=== PATIENT | male | born 1970 | race Hispanic/Latino ===

== ENCOUNTER 2017-11-09 22:23 | Emergency (ER) | payer OTHER, SELFPAY ==
[2017-11-09 22:30] VITALS: BP 158/88; PULSE 116; RESP 20; TEMP 36.1; O2SAT 100; BMI 31.4
--- NOTE | 2017-11-09 22:32 | ED.SOB ---
HPI - SOB/Dyspnea General Chief Complaint: Shortness of Breath/Dyspnea Stated Complaint: SOB Time Seen by Provider: 11/09/17 22:32 Source: patient and family Mode of arrival: ambulatory Limitations: no limitations History of Present Illness Patient presents to the emergency department today with a chief complaint of feeling anxious and restless and a bit agitated. He complains of some shortness of breath and difficulty sleeping with a resting tremor. He admittedly drinks between 4-8 beers daily and quit cold turkey a few days ago. He has been through withdrawals in the past but never seizures. He has never been to rehab. He has never been on any kind of benzo taper MD Complaint: shortness of breath and anxiety Onset (ago): hour(s) Context: other Severity: mild Consistency/Duration: constant Relieving factors: nothing Exacerbating factors: nothing Related Data Home Medications Medication Instructions Recorded Confirmed ibuprofen 200 mg PO PRN PRN #0 01/24/16 Previous Rx's Medication Instructions Recorded lisinopril 10 mg PO HS #30 tab 03/05/17 lorazepam 1 tab PO BIDP PRN #15 tab 03/05/17 chlordiazepoxide HCl See Label Instructions .ROUTE 11/09/17 .COMPLEX #32 cap Allergies Allergy/AdvReac Type Severity Reaction Status Date / Time No Known Drug Allergies Allergy Verified 11/09/17 22:30 Review of Systems Review of Systems All systems reviewed & are unremarkable except as noted in HPI and below Constitutional Denies chills, Denies fever(s), Denies lethargy and Denies weakness Eyes Denies change in vision, Denies eye discharge, Denies irritation and Denies loss of vision ENT Ears, Nose, Mouth, and Throat: Denies change in voice, Denies neck pain and Denies sore throat Cardiovascular Denies chest pain, Denies irregular heart rhythm, Denies lightheadedness, Reports palpitations, Reports dyspnea, Denies dyspnea on exertion and Denies orthopnea Respiratory Denies cough, Reports dyspnea, Denies dyspnea on exertion and Denies wheezing Gastrointestinal Gastrointestinal: Denies abdominal pain, Denies change in bowel habits, Denies diarrhea, Reports nausea and Denies vomiting Genitourinary Denies hematuria, Denies flank pain, Denies urinary incontinence and Denies urinary urgency Musculoskeletal Denies neck pain Integumentary/Breasts Denies pruritus, Denies erythema, Denies rash and Denies wounds Neurologic Denies confusion, Denies loss of vision, Reports tremor(s) and Denies weakness Psychiatric Reports anxiety, Denies confusion, Denies depression, Denies homicidal ideation and Denies suicidal ideation Endocrine Reports palpitations Hematologic/Lymphatic Denies easy bruising Allergic/Immunologic Denies wheezing PFSH Social History alcohol intake: current Exam Initial Vital Signs Initial Vital Signs: Vital Signs Temperature 96.9 F L 11/09/17 22:30 Pulse Rate 116 H 11/09/17 22:30 Respiratory Rate 20 11/09/17 22:30 Blood Pressure 158/88 H 11/09/17 22:30 Pulse Oximetry 100 11/09/17 22:30 Const General: cooperative and well developed Nutritional Appearance: well nourished Orientation: alert, awake, oriented x3 and not confused HENAL Head: normocephalic and atraumatic Ears: external ears normal and TM's normal bilaterally Nose: external nose normal and No nasal discharge Face and sinus: sinuses nontender, face symmetric, no sinus tenderness and No dry mucous membranes Mouth: oral mucosae normal and moist mucous membranes Teeth and gingiva: dentition normal Throat: tonsils normal and uvula midline Eyes General: appearance normal, both eyes and all related structures Eyelids: eyelids normal Conjunctivae: conjunctivae normal Sclera: sclerae normal Pupils: PERRL EOM: EOM intact bilaterally Neck Neck: normal visual inspection, trachea midline, No lymphadenopathy, No midline deformity and No JVD Lymphatic: No lymphedema Chest Chest: normal inspection of the chest Resp Effort & Inspection: normal respiratory effort, able to speak in complete sentences, no respiratory distress and no use of accessory muscles Auscultation: clear to auscultation bilaterally, no rales, no rhonchi and no wheezes Cardio Rate: regular rate Rhythm: regular rhythm Heart Sounds: no click, no gallops, no murmurs and no rubs Pulses: normal peripheral pulses GI Inspection: non-distended Palpation: soft, no hepatosplenomegaly, No guarding, No pulsatile mass and No tender Auscultation: normal bowel sounds Back/Spine/Pelvis Back: No CVA tenderness Cervical Spine: cervical ROM normal and No pain with cervical ROM Thoracic/Lumbar Spine: thoracic and lumbar spine normal to inspection Skin General: no rashes or lesions noted, No jaundice and No petechiae Neuro General: alert, oriented x3, gait normal and no focal motor deficits Speech: speech normal Motor: tremor Sensory Exam: no sensory deficits noted Extrem General: full ROM, no clubbing, cyanosis or edema, no pedal edema and no calf tenderness Psych Appearance: well kempt Mental Status: mental status grossly normal Attitude: cooperative Thought Content: normal and suicidality Judgment: judgment good Course Orders Ordered: ED Orders 11/09/17 22:55 Acetaminophen Stat Complete Blood Count AUTO DIFF Stat Comprehensive Metabolic Panel Stat Ethanol (ETOH) Stat Hepatic (Liver) Panel Stat Lactate (Lactic Acid) Stat Salicylate Stat Discontinued Medications Sodium Chloride (Normal Saline 0.9%) 1,000 mls @ 150 mls/hr IV CONT ALEJO Last Infusion: 11/09/17 23:53 Dose: 0 mls/hr Admin: 11/09/17 23:33 Dose: 150 mls/hr Lorazepam (Ativan) 1 mg PO NOW ONE Stop: 11/09/17 23:43 Last Admin: 11/09/17 23:53 Dose: 1 mg Reevaluation(s) Reevaluation #1: [place] for Alcohol Withdrawal from [employer] on 11/09/2017 All calculations should be rechecked by clinician prior to use RESULT SUMMARY: 4 points Patients with scores ?8 typically do not require medication for withdrawal. INPUTS: Nausea/vomiting ?> 1 = Mild nausea and no vomiting Tremor ?> 1 = Not visible, but can be felt fingertip to fingertip Paroxysmal sweats ?> 1 = Barely perceptible sweating, palms moist Anxiety ?> 1 = Mildly anxious Agitation ?> 0 = Normal activity Tactile disturbances ?> 0 = None Auditory disturbances ?> 0 = Not present Visual disturbances ?> 0 = Not present Headache/fullness in head ?> 0 = Not Present Orientation/clouding of sensorium ?> 0 = Oriented, can do serial additions Vital Signs - 8 hr 11/09/17 22:30 11/09/17 23:59 Temperature 96.9 F L Pulse Rate 116 H 93 H Respiratory Rate 20 16 Blood Pressure 158/88 H 134/71 H Pulse Oximetry 100 97 MDM - SOB/Dyspnea Lab Data Result diagrams: 11/09/17 22:55 11/09/17 22:55 Lab Results 11/09/17 11/09/17 11/09/17 Range/Units 22:55 22:55 22:55 WBC 8.5 (4.5-11.0) X10^3/uL RBC 5.26 (4.5-5.9) X10^6/uL Hgb 15.9 (13.5-17.5) g/dL Hct 48.0 (41-53) % MCV 91.3 (80-100) fL MCH 30.2 (26-34) PG MCHC 33.1 (30-36) % RDW 14.8 (11.6-14.8) % Plt Count 182 (150-400) X10^3/uL Neut % (Auto) 59.2 (50-75) % Lymph % (Auto) 24.9 L (25-40) % [place] % (Auto) 13.7 (3-14) % Eos % (Auto) 1.6 L (2-4) % Baso % (Auto) 0.6 (0-2) % Neut # (Auto) 5000 (7682-0567) /uL Sodium 135 L (137-145) mmol/L Potassium 4.2 (3.4-5.1) mmol/L Chloride 105 (98-107) mmol/L Carbon Dioxide 18 L (22-32) mmol/L BUN 24 H (9-20) mg/dL Creatinine 1.10 (0.66-1.25) mg/dL Estimated GFR > 60.0 (>60) mL/min BUN/Creatinine Ratio 21.8 (6-22) Glucose 110 H (70-100) mg/dL Lactate 1.2 (0.7-2.1) mmol/L Calcium 8.8 (8.4-10.2) mg/dL Total Bilirubin 1.6 H (0.2-1.3) mg/dL Conjugated Bilirubin 0.0 (0.0-0.3) md/dL Unconjugated Bilirubin 1.3 H (0.0-1.1) mg/dL AST 34 (17-59) IU/L ALT 41 (21-72) IU/L Alkaline Phosphatase 56 (38-126) U/L Total Protein 6.9 (6.3-8.2) g/dL Albumin 3.9 (3.5-5.0) g/dL Globulin 3.0 (1.7-4.1) g/dL Albumin/Globulin Ratio 1.3 (1.0-2.8) Salicylates < 1.0 (<20) mg/dL Acetaminophen < 10 L (10-30) ug/mL Ethyl Alcohol < 10 mg/dL Discharge Plan Departure Patient Disposition: Home, Self-Care Clinical Impression: Alcohol withdrawal Discharge Date/Time: 11/10/17 00:01 Interventions: ED Discharge Assessment Last Done: 11/09/17 23:59 Instructions: DI for Drug or Alcohol Withdrawal Activity Restrictions/Additional Instructions: *You have been diagnosed with [ alcohol withdrawal ] *What to do: *Take medications as directed *Follow up with your primary care provider in 2-3 days *Return to ER if you should have any new, worsening or concerning symptoms Prescriptions: New chlordiazepoxide HCl 25 mg capsule See Label Instructions .ROUTE .COMPLEX Qty: 32 RF: 0 No Action ibuprofen 200 MG tablet 200 mg PO PRN PRNQty: 0 RF: 0 lisinopril 10 MG tablet 10 mg PO HS Qty: 30 RF: 2 lorazepam 1 MG tablet 1 tab PO BIDP PRNQty: 15 RF: 2 Referrals: [facility] [Outside] [facility] [Outside] [facility] [Outside]
[2017-11-09 23:03] LABS: Add Manual Diff / Slide Review NO; Basophils Percent Auto 0.6 % (0-2); Eosinophils Percent Auto 1.6 % (2-4); Hemoglobin 15.9 g/dL (13.5-17.5); Lymphocytes Percent Auto 24.9 % (25-40); Mean Corpuscular HGB Conc 33.1 % (30-36); Mean Corpuscular Hemoglobin 30.2 PG (26-34); Mean Corpuscular Volume 91.3 fL (80-100); Monocytes Percent Auto 13.7 % (3-14); Neutrophils Absolute Auto 5000 /uL (3000-5900); Neutrophils Percent Auto 59.2 % (50-75); Platelet Count 182 X10^3/uL (150-400); Red Blood Cell Count 5.26 X10^6/uL (4.5-5.9); Red Cell Distribution Width 14.8 % (11.6-14.8); White Blood Cell Count 8.5 X10^3/uL (4.5-11.0)
[2017-11-09 23:14] LABS: Acetaminophen < 10 ug/mL (10-30); Alanine Aminotransferase 41 IU/L (21-72); Albumin 3.9 g/dL (3.5-5.0); Albumin Globulin Ratio 1.3 (1.0-2.8); Alkaline Phosphatase 56 U/L (38-126); Aspartate Aminotransferase 34 IU/L (17-59); BUN Creatinine Ratio 21.8 (6-22); Bilirubin Total 1.6 mg/dL (0.2-1.3); Bilirubin Unconjugated 1.3 mg/dL (0.0-1.1); Blood Urea Nitrogen 24 mg/dL (9-20); Calcium 8.8 mg/dL (8.4-10.2); Carbon Dioxide 18 mmol/L (22-32); Chloride 105 mmol/L (98-107); Estimated Glomerular Filt Rate > 60.0 mL/min (>60); Ethanol (ETOH) < 10 mg/dL; Glucose 110 mg/dL (70-100); HEMOLYSIS < 15 (0-50); Lactate (Lactic Acid) 1.2 mmol/L (0.7-2.1); Potassium 4.2 mmol/L (3.4-5.1); Sodium 135 mmol/L (137-145); Total Protein 6.9 g/dL (6.3-8.2)
[2017-11-09 23:16] LABS: Salicylate < 1.0 mg/dL (<20)
[2017-11-09] MEDS: SODIUM CHLORIDE 0.9% 1,000 ML 150 ML IV (23:33)
[2017-11-09] MEDS: LORazepam 1 MG TABLET PO (23:53)
[2017-11-09 23:59] VITALS: BP 134/71; PULSE 93; RESP 16; O2SAT 97
== END 2017-11-10 00:01 | disposition home or self-care (01) ==
PROVIDERS: Emergency Provider Emergency Medicine
DX: F10.239 Alcohol dependence with withdrawal, unspecified (principal)
CPT/HCPCS: 36591; 80053; 80076; 80320; 80329; 83605; 85025; 93005; 99283; 99284; G0480

== ENCOUNTER → 2017-11-25 08:20 | Outpatient (CLI) | payer OTHER, SELFPAY ==
--- NOTE | 2017-11-25 | DI.ECHO.S_ITS ---
[facility] +---------+ : : [address] : : : : [phone] : : : : Phone: [phone]+ Echocardiogram Report + + :Name: LAURY BOSCH Study Date: 11/25/2017 Height: 71 in : :[facility] Weight: 239 lb : : Gender: Male BSA: 2.3 m2 : :: 1970 Age: 47 yrs BP: 140/60 mmHg: :Reason For Study: SOB : :Ordering Physician: Nichole Zaman : :Candy Performed By: Giselle Kovacs : :Referring: MICHELINE PATEL : + + Interpretation Summary The left ventricle is markedly dilated. Left ventricular systolic function is severely reduced. The ejection fraction is estimated to be 25-30%. There is severe global hypokinesis of the left ventricle. Assessment of diastolic parameters suggests a pseudonormalization pattern, consistent with elevated filling pressures. Cannot exclude apical mural thrombus. Repeat focus study with Definity contrast to rule out thrombus. The right ventricle is borderline dilated. Right ventricular systolic function is mildly reduced. The right ventricular systolic pressure is estimated at 35- 40 mmHg assuming a right atrial pressure of 3 mm Hg. The left atrium is severely dilated. The right atrium is severely dilated. There is severe aortic regurgitation. There is prominent holodiastolic flow reversal in the descending thoracic aorta. There is no other significant valvular heart disease. The aortic root is severely dilated. The ascending aorta is mild-moderately enlarged. Procedure: A two-dimensional transthoracic echocardiogram with color flow and Doppler was performed. The study quality was technically good. There is no prior echocardiogram noted for this patient. The patient was in normal sinus rhythm during the exam. Left Ventricle: The left ventricle is markedly dilated. Left ventricular wall thickness is mildly increased. Left ventricular systolic function is severely reduced. The ejection fraction is estimated to be 25-30%. There is severe global hypokinesis of the left ventricle. Assessment of diastolic parameters suggests a pseudonormalization pattern, consistent with elevated filling pressures. Right Ventricle: The right ventricle is borderline dilated. Right ventricular systolic function is mildly reduced. Atria: The left atrium is severely dilated. The right atrium is severely dilated. The interatrial septum is intact with no evidence for an atrial septal defect. Mitral Valve: The mitral valve is normal in structure and function. There is no mitral regurgitation noted. Aortic Valve: The aortic valve is trileaflet. The aortic valve opens well. There is severe aortic regurgitation. There is prominent holodiastolic flow reversal in the descending thoracic aorta. There is significant holodiastolic flow reversal in the proximal abdominal aorta. Tricuspid Valve: The tricuspid valve leaflets are thin and pliable. There is mild tricuspid regurgitation. The right ventricular systolic pressure is estimated at 35-40 mmHg assuming a right atrial pressure of 3 mm Hg. Pulmonic Valve: The pulmonic valve is normal in structure and function. There is trace pulmonic regurgitation. There is no other significant valvular heart disease. Great Vessels: The aortic root is severely dilated. The ascending aorta is mild-moderately enlarged. The aortic arch is at the upper limits of normal in size. The IVC is of normal diameter and collapses greater than 50% with a sniff. This suggests a low right atrial pressure of 3 mm Hg. Pericardium/ Pleura There is no pericardial effusion. There is no pleural effusion. MMode/2D Measurements & Calculations LVIDd: 7.6 cm Ao root diam: 5.0 cm LVIDs: 6.7 cm Aortic Jxn: 4.4 cm FS: 12.1 % asc Aorta Diam: 4.0 cm EPSS: 3.8 cm Ao Arch Diam (Prox Trans): 3.1 cm IVSd: 1.2 cm LVPWd: 1.1 cm LV alvarado. diameter/BSA (cm/m^2): 3.3 LV sys. diameter/BSA (cm/m^2): 2.9 LA dimension: 4.8 cm RA long axis: 6.6 cm LA A2 area: 32.0 cm2 RA area: 33.4 cm2 LA A4 area: 34.2 cm2 RA vol: 143.9 ml LA length (vol): 7.0 cm RA : 63.2 ml/m2 LA vol: 132.0 ml IVC diam: 1.9 cm LA vol index: 58.0 ml/m2 RVDd major: 6.6 cm RVD1 (basal): 4.5 cm RVD2 (mid): 4.4 cm Doppler Measurements & Calculations Ao V2 max: 142.0 cm/sec AI P1/2t: 206.5 msec Ao V2 mean: 110.2 cm/sec AI dec slope: 528.4 cm/sec2 Ao max P.1 mmHg Ao mean P.3 mmHg Ao V2 VTI: 30.6 cm MV E max servando: 67.9 cm/sec TR max servando: 339.1 cm/sec MV A max servando: 21.7 cm/sec TR max P.0 mmHg MV E/A: 3.1 PA V2 max: 41.0 cm/sec Med Peak E' Servando: 3.3 cm/sec PA V2 mean: 25.4 cm/sec E/E' med: 20.8 PA mean P.32 mmHg Lat Peak E' Servando: 5.9 cm/sec PA Accel Time: 0.11 sec E/E' lat: 11.5 E/e' average: 16.2 MV dec time: 0.11 sec MV P1/2t: 32.1 msec MV P1/2t max servando: 67.5 cm/sec MVA(P1/2t): 6.9 cm2 Reading Physician:ALLEY
== END ==
PROVIDERS: Visit Provider Nurse Practitioner Family
DX: I35.1 Nonrheumatic aortic (valve) insufficiency (principal); R06.02 Shortness of breath
CPT/HCPCS: 93306

== ENCOUNTER → 2018-02-21 09:45 | Outpatient (CLI) | payer OTHER, SELFPAY ==
[2018-02-21 10:15] LABS: Prothrombin Time 45.1 SECONDS (10.1-12.7)
== END ==
PROVIDERS: Visit Provider Pharmacist
DX: Z79.01 Long term (current) use of anticoagulants (principal)
CPT/HCPCS: 36415; 85610

== ENCOUNTER → 2018-02-25 11:57 | Outpatient (CLI) | payer OTHER, SELFPAY ==
[2018-02-25 12:23] LABS: INR 3.7 (0.9-1.3)
== END ==
PROVIDERS: PCP Nurse Practitioner Family; Visit Provider Pharmacist
DX: Z79.01 Long term (current) use of anticoagulants (principal)
CPT/HCPCS: 36415; 85610

== ENCOUNTER → 2018-02-28 11:44 | Outpatient (CLI) | payer OTHER, SELFPAY ==
[2018-02-28 12:22] LABS: INR 3.4 (0.9-1.3); Prothrombin Time 37.2 SECONDS (10.1-12.7)
== END ==
PROVIDERS: PCP Nurse Practitioner Family; Visit Provider Pharmacist
DX: Z79.01 Long term (current) use of anticoagulants (principal)
CPT/HCPCS: 36415; 85610

== ENCOUNTER 2020-12-13 18:51 | Emergency (ER) | payer OTHER, SELFPAY ==
[2020-12-13 18:55] VITALS: BP 131/80; PULSE 89; RESP 14; TEMP 36.6; O2SAT 98
--- NOTE | 2020-12-13 20:23 | ED.LOWEXIN ---
HPI - Extremity Injury (Lower) General Chief Complaint: Extremity Injury, Lower Stated Complaint: connective tissue disorder/hit irizarry not healing Time Seen by Provider: 12/13/20 20:02 Source: patient Mode of arrival: Ambulatory Limitations: no limitations History of Present Illness HPI Narrative: Patient is a 50-year-old male. States he has a connective tissue disorder that has been diagnosed by a specialist. He states that it is not Marfan's syndrome. 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 He has had blood clots in the past. Has had a pulmonary embolism in the past. Is only on aspirin not on any other anticoagulation. He states that he bumped his irizarry a couple days ago. Since that time he has noticed some swelling and redness around the area and was concerned about a blood clot. Related Data Home Medications Medication Instructions Recorded Confirmed ibuprofen 200 mg tablet 200 mg PO PRN PRN #0 01/24/16 Previous Rx's Medication Instructions Recorded lisinopril 10 mg tablet 10 mg PO HS #30 tab 03/05/17 lorazepam 1 mg tablet 1 tab PO BIDP PRN #15 tab 03/05/17 chlordiazepoxide HCl 25 mg capsule See Rx Instructions .ROUTE 11/09/17 .COMPLEX #32 cap Allergies Allergy/AdvReac Type Severity Reaction Status Date / Time No Known Drug Allergies Allergy Verified 12/13/20 18:58 Review of Systems Constitutional Constitutional: Reports system reviewed and no additional complaints, except as documented Cardiovascular Cardiovascular: Reports system reviewed and no additional complaints, except as documented Respiratory Respiratory: Reports system reviewed and no additional complaints, except as documented Gastrointestinal Gastrointestinal: Reports system reviewed and no additional complaints, except as documented Genitourinary Genitourinary: Reports system reviewed and no additional complaints, except as documented Musculoskeletal Musculoskeletal: Reports as per HPI Integumentary/Breasts Skin/Breast: Reports as per HPI Neurologic Neurologic: Reports system reviewed and no additional complaints, except as documented Hematologic/Lymphatic On Anticoagulants: No Patient History Medical History Abdominal aortic aneurysm DVT (deep venous thrombosis) Pulmonary embolism Social History Smoking Status: Former smoker alcohol intake: current Smoking Status: Former smoker alcohol intake frequency: 3 or more drinks per day Substance Use Type: does not use Exam Initial Vital Signs Initial Vital Signs: Vital Signs Temperature 97.9 F 12/13/20 18:55 Pulse Rate 89 12/13/20 18:55 Respiratory Rate 14 12/13/20 18:55 Blood Pressure 131/80 12/13/20 18:55 Pulse Oximetry 98 12/13/20 18:55 Const General: cooperative and healthy appearing [facility] Head: normal to inspection and normocephalic Resp Effort & Inspection: normal respiratory effort Cardio Pulses: dorsalis pedis present on the left GI Inspection: normal to inspection Skin Other: Patient with a small superficial skin abrasion on the anterior midportion of his left irizarry. No active bleeding. Neuro General: patient alert, patient awake, patient oriented x3 and moves all extremities Gait: normal gait Extrem Other: Patient has no calf tenderness. Has a small abrasion on the left anterior irizarry with some surrounding redness and bruising. Psych Appearance: grossly normal Course Vital Signs Vital signs: Vital Signs - 8 hr 12/13/20 18:55 Temperature 97.9 F Pulse Rate 89 Respiratory Rate 14 Blood Pressure 131/80 Pulse Oximetry 98 MDM - Extremity Injury (Lower) MDM Narrative Medical decision making narrative: Low suspicion for DVT given his presentation today. The superficial abrasion on his left irizarry needs no intervention. There is some surrounding bruising which I suspect is the cause of the air theme a. I have low suspicion for cellulitis. Reassured patient of the findings today. He was given strict return precautions and follow-up instructions. He expressed understanding and agreement. Discharge Plan Departure Patient Disposition: Home Clinical Impression: Contusion of leg, left Instructions: DI for Contusion Activity Restrictions/Additional Instructions: The wound today does not appear to be infected and I also have very low suspicion for a deep venous thrombosis. Recommend you contact your primary doctor for a follow-up. Return to the emergency department for any new or worsening symptoms Prescriptions: No Action ibuprofen 200 MG tablet 200 mg PO PRN PRNQty: 0 RF: 0 lisinopril 10 MG tablet 10 mg PO HS Qty: 30 RF: 2 lorazepam 1 MG tablet 1 tab PO BIDP PRNQty: 15 RF: 2 chlordiazepoxide HCl 25 mg capsule See Rx Instructions .ROUTE .COMPLEX Qty: 32 RF: 0 Referrals: Kimi Muir ARNP [Primary Care Provider] -
== END 2020-12-13 20:41 | disposition home or self-care (01) ==
PROVIDERS: Emergency Provider Emergency Medicine; PCP Nurse Practitioner Family
DX: S80.12XA Contusion of left lower leg, initial encounter (principal)
CPT/HCPCS: 99281

== ENCOUNTER → 2022-10-15 17:15 | Outpatient (ROUT) | payer OTHER, SELFPAY | PROVIDERS: PCP Nurse Practitioner Family; Visit Provider Dermatology | DX: Z48.02 Encounter for removal of sutures (principal) | CPT/HCPCS: 87070; 87075; 87205 ==

== ENCOUNTER → 2023-10-01 16:39 | Outpatient (CLI) | payer OTHER, SELFPAY ==
[2023-10-01 17:55] LABS: Uric Acid 5.1 mg/dL (3.5-8.5)
== END ==
LOC: LAB 16:41
PROVIDERS: PCP Nurse Practitioner Family; Referring Provider Podiatrist; Visit Provider Podiatrist
DX: M12.9 Arthropathy, unspecified (principal)
CPT/HCPCS: 36415; 84550